=== PATIENT | male | born 2005 | race Caucasian/White ===

== ENCOUNTER → 2024-04-18 | Outpatient (CLI) | payer OTHER, SELFPAY ==
--- NOTE | 2024-04-18 09:46 | RAD_ITS ---
STUDY: X-RAY - LEFT SHOULDER REASON FOR EXAM: Male, 18 years old. POST ARTHROGRAM TECHNIQUE: 2 view(s) of the shoulder. COMPARISON: None. FINDINGS: 2 views were obtained following intra-articular contrast administration. No abnormality is seen. RAD/Shoulder min 2 Views IMPRESSION: Intra-articular contrast is seen. Electronically Signed: Doug Tsai MD at 9:45 EDT ,
[2024-04-18] MEDS: Lidocaine 2% (5ml sdv) 5 ML VIAL.MPF INFILT (10:08)
[2024-04-18] MEDS: Gadoterate Meglumine Diluted 10 ML, Iopamidol 5 ML, Lidocaine 1% (20 ml mdv) 5 ML, Epin... INTRAARTIC (10:11)
[2024-04-18] MEDS: Iopamidol 10 ML in Syringe 1 EACH 600 ML INTRAARTIC (10:11)
--- NOTE | 2024-04-18 10:15 | MRI_ITS ---
STUDY: MRI LEFT SHOULDER REASON FOR EXAM: Male, 18 years old. SHOULDER PAIN TECHNIQUE: Standardized fat and water weighted pulse sequences were obtained in all 3 orthogonal planes. COMPARISON: None. FINDINGS: Normal supraspinatus tendon. Normal infraspinatus tendon. Normal subscapularis tendon. Normal teres minor tendon. Normal supraspinatus muscle. Normal infraspinatus muscle. Normal subscapularis muscle. Normal teres minor muscle. Normal glenohumeral articulation. Normal humeral head and visualized proximal humerus. Normal biceps labral complex. Normal intracapsular long biceps tendon. Linear hyperintensity throughout the posterior labrum worrisome for labral tear. Normal capsulo- ligamentous complex. Normal rotator interval. Normal acromioclavicular articulation. There is a Type II morphology (curved), with a neutral orientation. There is no subacromial-subdeltoid bursal fluid. Normal visualized coracohumeral and coracoacromial ligaments. Normal quadrilateral space. Normal axillary space. Normal deltoid muscle. Normal trapezius muscle. MRI/Upper Ext Jt Only W/Contrast IMPRESSION: Suspect tear of the posterior labrum. Electronically Signed: Fly Arenas MD at 11:45 EDT ,
--- NOTE | 2024-04-18 15:11 | PRO.PCM_ITS ---
Procedure Report Date of Procedure: 04/18/24 Assessment & Plan Assessment/Plan (1) Left shoulder pain: QUALIFIERS: Chronicity: unspecified Qualified Code(s): M25.512 - Pain in left shoulder PLAN: PROCEDURE: Arthrogram-left shoulder ORDERING PROVIDER: Myrna Jacobs PA-C INDICATION: Male, 18 years old. Left shoulder pain. FLUOROSCOPY TIME (if supplied): 0 minutes/25 seconds. 5 mGy PROVIDER: Stephanie Bourne APRN-[facility] CONSENT: The procedure as well as the benefits and possible complications including bleeding and infection were explained to the patient. Informed consent was obtained. TECHNIQUE: The patient was positioned supine. The overlying skin was prepped and draped in the usual sterile fashion. Following injection of local anesthetic with 2% l idocaine and under direct fluoroscopic guidance, a 22-gauge spinal needle was placed into the left glenohumeral space. 2 cc of Isovue 300 was injected for confirmation. Following this, 10 cc of arthrogram contrast (gadoterate, iopamidol, lidocaine, and epinephrine), compounded by pharmacy, was injected. All elements of maximal sterile barrier technique followed. Patient tolerated procedure well. IMPRESSION: Successful fluoroscopic guided left shoulder arthrogram. Procedures Radiology Radiology Xray Procedures: [id number] Arthrogram Shoulder Multi Select Codes Radiology Rad Xray Procedures: [id number] Fluoroscopic guidance for needle placement
== END | disposition home or self-care (01) ==
PROVIDERS: Referring Provider Physician Assistant; Visit Provider Physician Assistant
DX: M25.512 Pain in left shoulder (principal); R03.0 Elevated blood-pressure reading, without diagnosis of hypertension; S43.492A Other sprain of left shoulder joint, initial encounter
CPT/HCPCS: 20610; 23350; 73030; 73222; 77002; Q9967